=== PATIENT | female | born 1985 | race American Indian/Alaskan Native ===

== ENCOUNTER 2017-12-01 14:45 | Inpatient (IN) | payer OTHER ==
[~2017-12-01] VITALS: Ht 165.1 cm; Wt 58.5 kg
[~2017-12-01 14:45] MED LIST: INTEGRA F CAPS1 EACH PO; OBSTETRIX DHA1 EACH PO; TUMS DUAL ACTI1 EACH PO; VALACYCLOVIR500 MG PO
== END 2017-12-24 11:51 | DRG 775 ==
LOC: LDR 12-22 07:17 → OB/GYN 12-22 17:22
PROC: 10E0XZZ Delivery of Products of Conception, External Approach (ICD-10-PCS; principal; 2017-12-22)
PROC: 0KQM0ZZ Repair Perineum Muscle, Open Approach (ICD-10-PCS; 2017-12-22)
PROC: 0W8NXZZ Division of Female Perineum, External Approach (ICD-10-PCS; 2017-12-22)
PROC: 10907ZC Drainage of Amniotic Fluid, Therapeutic from Products of Conception, Via Natural or Artificial Opening (ICD-10-PCS; 2017-12-22)
PROC: 4A1HXCZ Monitoring of Products of Conception, Cardiac Rate, External Approach (ICD-10-PCS; 2017-12-22)
DX: O70.1 Second degree perineal laceration during delivery (principal); Z37.0 Single live birth; B00.89 Other herpesviral infection; O99.824 Streptococcus B carrier state complicating childbirth; Z3A.39 39 weeks gestation of pregnancy

== ENCOUNTER 2017-12-21 09:22 | Outpatient (CLI) | payer OTHER | END 2017-12-21 10:21 | disposition home or self-care (01) | LOC: NST 09:22 | DX: Z34.83 Encounter for supervision of other normal pregnancy, third trimester (principal) ==